=== PATIENT | male | born 1985 | race Caucasian/White ===

== ENCOUNTER 2019-06-26 18:29 | Emergency (ER) | payer OTHER ==
[~2019-06-26] VITALS: Ht 182.9 cm; Wt 113.4 kg
[~2019-06-26 18:29] MED LIST: Bactrim Ds Tab1 EACH PO; Keflex500 MG PO; UNK BP MED
[2019-06-26] MEDS ORDERED: Bactrim Ds Tab1 EACH PO (22:07)
[2019-06-26] MEDS ORDERED: CEPH500 PO (22:07)
== END 2019-06-26 22:55 | disposition home or self-care (01) ==
LOC: ER 18:29
DX: L03.114 Cellulitis of left upper limb (principal); I10 Essential (primary) hypertension
CPT/HCPCS: 99283; A9270; A9270-GY

== ENCOUNTER 2020-02-10 20:36 | Emergency (ER) | payer OTHER ==
[~2020-02-10] VITALS: Ht 182.9 cm; Wt 100.7 kg
[~2020-02-10 20:36] MED LIST changes: +CEPH500 PO
[2020-02-10] MEDS ORDERED: Vibramycin100 MG PO (22:35)
== END 2020-02-10 22:42 | disposition home or self-care (01) ==
LOC: ER 20:36
DX: L03.113 Cellulitis of right upper limb (principal); I10 Essential (primary) hypertension; Z79.899 Other long term (current) drug therapy
CPT/HCPCS: 73130; 99283-25